=== PATIENT | male | born 1995 | race Caucasian/White ===

== ENCOUNTER 2021-11-24 12:53 | Outpatient (CLI) | payer OTHER, SELFPAY ==
--- NOTE | ~2021-11-24 | MR_ITS ---
EXAMINATION: MR lower leg RT wo con DATE: 11/24/2021 13:34 INDICATION: Right lower leg pain. TECHNIQUE: Magnetic resonance imaging (MRI) of the right tibia and fibula was performed without intra venous contrast. COMPARISON: None. FINDINGS: Bone alignment is normal. No acute fracture. Bone marrow signal intensity is normal. The kn ee joint is only partially visualized, but demonstrates mild osteoarthritis. Partially visualized are changes of anterior cruciate ligament reconstruction. The reconstruction is not well evaluated. The right lower leg musculature is normal. The neurovascular bundles are normal. IMPRESSION: 1. No specific etiology for lower leg pain. Note that the MRI is centered on the lower leg, and the k nee is not well evaluated. Reviewed, dictated and finalized at location A. IMPRESSION: 1. No specific etiology for lower leg pain. Note that the MRI is centered on th e lower leg, and the knee is not well evaluated.
== END 2021-11-24 12:54 | disposition home or self-care (01) ==
PROVIDERS: PCP Family Medicine; Visit Provider Orthopaedic Surgery
DX: M79.604 Pain in right leg (principal)
CPT/HCPCS: 73718